=== PATIENT | female | born 1940 | race Caucasian/White ===

== ENCOUNTER 2016-07-06 21:13 | Emergency (ER) | payer MEDICARE, BC ==
[~2016-07-06] VITALS: Ht 154.9 cm; Wt 63.5 kg
[~2016-07-06 21:13] MED LIST: NORVASC5 MG ORAL
[2016-07-06] MEDS ORDERED: DIOVAN80 MG ORAL (21:28)
[2016-07-06 21:48] VITALS: BP 130/52
[2016-07-06 23:03] VITALS: BP 135/60
--- NOTE | 2016-07-06 23:53 | Emergency Room Report ---
History of Present Illness General Chief Complaint: Pain Source: Patient Present Illness HPI Patient is a 75-year-old female who presented after increased pain to the left shoulder. Patient had a report of hyperesthesia to the left superior aspect of her left shoulder. Patient had previous history of hypertension as well as arthritis. The patient denied any weakness.Patient reported having high blood pressure and had taken multiple medications attempt to lower blood pressure. Allergies: Coded Allergies: No Known Allergies (Unverified , 03/08/13) Patient History Past Medical History: see triage record Now: No Reviewed Nursing Documentation: PMH: Agreed, PSxH: Agreed Nursing Documentation-PMH Hx Hypertension: Yes Review of Systems All Other Systems: negative except mentioned in HPI Physical Exam Vital Signs Date Time Temp Pulse Resp B/P Pulse Ox O2 Delivery O2 Flow Rate FiO2 07/06/16 21:21 98.4 58 18 130/52 96 General Appearance: well appearing, no apparent distress, alert, GCS 15 Head: normocephalic, atraumatic ENT: hearing grossly normal, normal voice Neck: supple, limited range of motion Respiratory: no respiratory distress, speaking full sentences Cardiovascular #1: regular rate, rhythm Gastrointestinal: normal inspection Musculoskeletal: normal inspection, no calf tenderness, decreased range of mation Neurologic: normal inspection, alert, oriented x3, responsive, beauty specialist III-XII nml as tested, normal gait Psychiatric: mood/affect normal Skin: no rash Medical Decision Making Diagnostic Impression: Primary Impression: Arthritis Additional Impression: Muscle spasms of neck ER Course Patient presented for a neck pain.Differential diagnosis included vertebral artery dissection, myocardial infarction, cervical fracture, arthritis, spondylolithises. Because of complexity of patient's case laboratory testing and imaging studies were ordered. Patient declined laboratory testing. A chest x-ray one view interpreted by me showed degenerative changes without evident fracture cardiac size was normal. CT imaging of the cervical and thoracic spine read by radiology showed multilevel degenerative changes there also noted some coronary artery calcifications. The patient was offered admission and she declined. EKG to remain shows sinus bradycardia with a rate of [address] or T wave changes. The patient is advised followup with her global sales director for outpatient stress testing. The patient was advised she could return at anytime. Last Vital Signs Date Time Temp Pulse Resp B/P Pulse Ox O2 Delivery O2 Flow Rate FiO2 07/06/16 23:03 54 18 135/60 07/06/16 21:48 98.4 96 Status: improved Disposition: HOME, SELF-CARE Condition: Stable Patient Instructions: Muscle Cramps and Spasms, Coronary Artery Disease, Female Jf Bagley Jul 06, 2016 23:53
--- NOTE | 2016-07-07 09:08 | Diagnostic Imaging Report ---
Indication: Neck pain. Technique: Continuous helical imaging of the cervical spine was obtained transaxially from the skull base to the upper thoracic spine. 2-D coronal and sagittal reformatted images were obtained. Total Dose length Product (DLP): [address] Dose Index Volume (CTDIvol): 27 mGy Comparison: None Findings: There is no acute fracture or malalignment identified. There is no soft tissue swelling identified. Moderate uncovertebral arthritis is demonstrated at multiple levels. Many of the intervertebral discs show moderate to severe narrowing and osteophytes. Arterial vascular calcifications are noted. Impression: No acute injury Moderate spondylosis Atherosclerotic vascular disease The CT scanner at [facility] is accredited by the [employer] and the scans are performed using protocols designed to limit radiation exposure to as low as reasonably achievable to attain images of sufficient resolution adequate for diagnostic evaluation.
--- NOTE | 2016-07-07 09:16 | Diagnostic Imaging Report ---
Indication: Back pain Technique: Continuous helical transaxial imaging of the thoracic spine was obtained from the lung bases to the pubic symphysis. No IV contrast was administered. Coronal 2-D reformats were also obtained. Study obtained in a Siemens sensation [address] Total Dose length Product (DLP): [address] Dose Index Volume (CTDIvol): 27 mGy Comparison: CT chest 05/14/12 Findings: Bones are osteopenic. Multilevel degenerative changes are present including narrowing of intervertebral discs, endplate and facet spur formation. The degree of disease is moderate. There is no compelling evidence of an acute fracture. There is no malalignment concerning for acute injury. Moderate arterial vascular consultation of the aorta is noted. Coronary calcifications are also noted. No soft tissue swelling identified in the paravertebral/paraspinous regions. Impression: No acute injury identified. Osteoporosis Moderate degenerative disease as described above. Atherosclerotic vascular disease [facility] has communicated the preliminary results to the Emergency Department. Their findings are largely concordant with this report. The CT scanner at [facility] is accredited by the [employer] and the scans are performed using protocols designed to limit radiation exposure to as low as reasonably achievable to attain images of sufficient resolution adequate for diagnostic evaluation.
--- NOTE | 2016-07-07 11:48 | Diagnostic Imaging Report ---
Indication: Chest Pain Comparison: 11 x 13 A single view chest radiograph was obtained. Findings: No definite infiltrate or pulmonary vascular congestion identified. The heart is enlarged. The aorta is mildly enlarged consistent with atherosclerotic vascular disease. The bones are osteopenic. Impression: No acute disease
--- NOTE | 2016-07-11 16:38 | Cardiology Report ---
APPROVED REPORT EKG Measurement Heart [id number] Sinus bradycardia Possible Left atrial enlargement Low voltage QRS Borderline ECG
== END 2016-07-06 23:00 | disposition home or self-care (01) ==
LOC: EMR 21:20
DX: M19.90 Unspecified osteoarthritis, unspecified site (principal); M62.838 Other muscle spasm; I25.10 Atherosclerotic heart disease of native coronary artery without angina pectoris; I10 Essential (primary) hypertension
CPT/HCPCS: 71010; 72125; 72128; 93005; 99284

== ENCOUNTER → 2016-08-06 | Outpatient (CLI) | payer MEDICARE, BC ==
[~2016-08-06] MED LIST changes: +DIOVAN80 MG ORAL
--- NOTE | 2016-08-06 12:44 | Diagnostic Imaging Report ---
Indication: Persistent headache Technique: sagittal T1 fast spin echo, axial T1 FLAIR PROPELLER, axial T2 FLAIR PROPELLER, axial T2 FS PROPELLER, axial T2* GRE, axial diffusion weighted images. ADC and exponential ADC maps generated Comparison: CT brain 03/08/2013, MRI brain 10/22/2011 Findings: . No abnormal areas of restricted diffusion to suggest acute infarction. No acute hemorrhage or edema. No mass effect nor midline shift. There is again demonstrated age-related enlargement of the ventricles and extra-axial CSF spaces periventricular deep white matter chronic ischemic changes are again demonstrated, appears similar to the prior study. Nonspecific bilateral deep white matter T2 hyperintensities are again demonstrated, and appear similar in extent to the prior study. Again demonstrated is right mastoid disease. The vascular flow voids are preserved.. Visualized orbits and sinuses are unremarkable. Impression: Chronic and age-related changes, as described, stable since 10/22/2011 Negative for acute intracranial bleed, mass effect, or infarct
== END | disposition home or self-care (01) ==
LOC: MRI 09:52
DX: R51 Headache (principal)
CPT/HCPCS: 70551

== ENCOUNTER 2018-02-02 12:12 | Emergency (ER) | payer MEDICARE, BC ==
[~2018-02-02] VITALS: Ht 157.5 cm; Wt 62.1 kg
[2018-02-02 12:38] VITALS: BP 155/67
[2018-02-02 12:40] LABS: EOSINOPHILS % (AUTO) 1.7 % (0.0-3.0); HEMOGLOBIN 13.2 G/DL (12.0-16.0); LYMPHOCYTES % (AUTO) 23.9 % (20.0-45.0); MEAN CORPUSCULAR VOLUME 92 FL (80-99); MONOCYTES % (AUTO) 9.5 % (1.0-10.0); NEUTROPHILS % (AUTO) 63.9 % (45.0-75.0); PLATELET COUNT 226 K/UL (150-450); RED BLOOD COUNT 4.37 M/UL (4.20-5.40); RED CELL DISTRIBUTION WIDTH 11.8 % (11.6-14.8); WHITE BLOOD COUNT 7.3 K/UL (4.8-10.8)
[2018-02-02 12:52] LABS: ANION GAP 6 mmol/L (5-15); BLOOD UREA NITROGEN 15 mg/dL (7-18); CALCIUM 8.8 MG/DL (8.5-10.1); CARBON DIOXIDE 28 MMOL/L (21-32); CHLORIDE 105 MMOL/L (98-107); CREATININE 0.7 MG/DL (0.55-1.30); POTASSIUM 5.3 MMOL/L (3.5-5.1); SODIUM 139 MMOL/L (136-145)
[2018-02-02 12:58] LABS: ALANINE AMINOTRANSFERASE 17 U/L (12-78); ALBUMIN 3.2 G/DL (3.4-5.0); ALBUMIN/GLOBULIN RATIO 0.9 (1.0-2.7); ALKALINE PHOSPHATASE 74 U/L (46-116); ASPARTATE AMINO TRANSFERASE 21 U/L (15-37); BILIRUBIN,TOTAL 0.4 MG/DL (0.2-1.0)
--- NOTE | 2018-02-02 13:40 | Emergency Room Report ---
History of Present Illness General Chief Complaint: Multiple Trauma/Fall Source: Patient Present Illness HPI Patient states that she lost her balance and had a mechanical fall while seeing patients today in her office. 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 She states she fell onto her left side. She does report that she had the back of her head. She has a history of hypertension. She is on a baby aspirin daily. She is otherwise on no blood thinners. She complains of left hip pain, left knee pain and left shoulder pain. She has no other complaints. She did not have any prodromal symptoms such as chest pain, palpitations or lightheadedness. She denies recent illness. Allergies: Coded Allergies: No Known Allergies (Unverified , 03/08/13) Patient History Past Medical History: see triage record, HTN Past Surgical History: other - L. ankle reconstruction Social History: Denies: smoking, alcohol use, drug use Now: No Reviewed Nursing Documentation: PMH: Agreed; PSxH: Agreed Nursing Documentation-PMH Hx Hypertension: Yes Review of Systems All Other Systems: negative except mentioned in HPI Physical Exam Vital Signs Date Time Temp Pulse Resp B/P (MAP) Pulse Ox O2 Delivery O2 Flow Rate FiO2 02/02/18 12:09 97.6 67 18 155/67 98 Room Air 97.5 Sp02 EP Interpretation: reviewed, normal General Appearance: no apparent distress, alert, GCS 15, non-toxic Head: normocephalic, atraumatic Eyes: bilateral eye normal inspection, bilateral eye PERRL ENT: hearing grossly normal, normal pharynx, no angioedema, normal voice Neck: full range of motion, supple/symm/no masses Respiratory: chest non-tender, lungs clear, normal breath sounds, no respiratory distress, no retraction, no accessory muscle use, speaking full sentences Cardiovascular #1: regular rate, rhythm, no edema Gastrointestinal: normal bowel sounds, non tender, soft, non-distended, no guarding, no rebound Rectal: deferred Musculoskeletal: normal inspection, other - Pain w/ ROM of L. hip, L. knee and L. shoulder. Neurologic: alert, oriented x3, responsive, motor strength/tone normal, sensory intact, speech normal Psychiatric: judgement/insight normal, memory normal, mood/affect normal, no suicidal/homicidal ideation Skin: normal color, no rash, warm/dry, well hydrated Medical Decision Making Diagnostic Impression: Primary Impression: Contusion, multiple sites ER Course This patient status post mechanical fall. She has pain in her left hip and left side of her body but there is no evidence of any acute fractures or significant injuries. The patient declined pain medicine here in the emergency department. Overall, the patient's evaluation was benign. At this time, I did not identify an emergency medical condition. The patient is given close return precautions and follow-up instructions. Laboratory Tests Test 02/02/18 12:28 02/02/18 12:30 White Blood Count 7.3 K/UL (4.8-10.8) Red Blood Count 4.37 M/UL (4.20-5.40) Hemoglobin 13.2 G/DL (12.0-16.0) Hematocrit 40.0 % (37.0-47.0) Mean Corpuscular Volume 92 FL (80-99) Mean Corpuscular Hemoglobin 30.2 PG (27.0-31.0) Mean Corpuscular Hemoglobin Concent 33.0 G/DL (32.0-36.0) Red Cell Distribution Width 11.8 % (11.6-14.8) Platelet Count 226 K/UL (150-450) Mean Platelet Volume 7.5 FL (6.5-10.1) Neutrophils (%) (Auto) 63.9 % (45.0-75.0) Lymphocytes (%) (Auto) 23.9 % (20.0-45.0) Monocytes (%) (Auto) 9.5 % (1.0-10.0) Eosinophils (%) (Auto) 1.7 % (0.0-3.0) Basophils (%) (Auto) 1.0 % (0.0-2.0) Prothrombin Time 10.2 SEC (9.30-11.50) Prothrombin Time INR 1.0 (0.9-1.1) PTT 28 SEC (23-33) Sodium Level 139 MMOL/L (136-145) Potassium Level 5.3 MMOL/L (3.5-5.1) H Chloride Level 105 MMOL/L (98-107) Carbon Dioxide Level 28 MMOL/L (21-32) Anion Gap 6 mmol/L (5-15) Blood Urea Nitrogen 15 mg/dL (7-18) Creatinine 0.7 MG/DL (0.55-1.30) Estimate Glomerular Filtration Rate mL/min (>60) Glucose Level 101 MG/DL (74-106) Calcium Level 8.8 MG/DL (8.5-10.1) Total Bilirubin 0.4 MG/DL (0.2-1.0) Aspartate Amino Transferase (AST) 21 U/L (15-37) Alanine Aminotransferase (ALT) 17 U/L (12-78) Alkaline Phosphatase 74 U/L (46-116) Total Protein 6.7 G/DL (6.4-8.2) Albumin 3.2 G/DL (3.4-5.0) L Globulin 3.5 g/dL Albumin/Globulin Ratio 0.9 (1.0-2.7) L Other X-Ray Diagnostic Results Other X-Ray Diagnostic Results : X-Ray ordered: L. hip, L.knee, L. shoulder xrays # of Views/Limited Vs Complete: Complete Indication: Pain EP Interpretation: No Interpretation: no fractures Impression: Other - No fractures. See official report. Electronically Signed by: Amy CT/MRI/US Diagnostic Results CT/MRI/US Diagnostic Results : Imaging Test Ordered: CT pelvis, CT head Impression No acute findings on either study. See official report in electronic medical record. Last Vital Signs Date Time Temp Pulse Resp B/P (MAP) Pulse Ox O2 Delivery O2 Flow Rate FiO2 02/02/18 12:38 97.6 67 18 155/67 98 97.6 02/02/18 12:09 Room Air Disposition: HOME, SELF-CARE Condition: Improved Referrals: NOT CHOSEN IPA/,REFERRING (PCP) Geri Borjas DO Feb 02, 2018 13:40
--- NOTE | 2018-02-02 13:53 | Diagnostic Imaging Report ---
Indication: Ground-level fall, 4 out of 10 nonradiating left hip pain Technique: Noncontrast spiral acquisitions obtained through the pelvis. Multiplanar reconstructions generated. Total dose length product 612.95 mGycm. CTDIvol(s) 19.32 mGy. Dose reduction achieved using automated exposure control Comparison: Reference made to chest abdomen pelvis CT dated 05/14/2012 Findings: No acute fractures. No dislocations. No evidence of significant soft tissue contusion or hematoma. Joint spaces are preserved.. There are degenerative changes of the lumbosacral junction. The uterus is absent, presumably postsurgically. The visualized pelvic viscera are unremarkable. There are atherosclerotic vascular calcifications. There is widening of the sacral spinal canal to the right of midline with fluid attenuation material, thinning of the overlying cortex. 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 Queen in the emergency room The CT scanner at [facility] is accredited by the [employer] and the scans are performed using protocols designed to limit radiation exposure to as low as reasonably achievable to attain images of sufficient resolution adequate for diagnostic evaluation.
--- NOTE | 2018-02-02 13:57 | Diagnostic Imaging Report ---
Indications: Trauma Technique: Spiral acquisitions obtained through the brain. Angled axial and coronal 5 x 5 mm slices were reconstructed. Total dose length product 1445.84 mGycm. CTDI vol(s) 70.38 mGy. Dose reduction achieved using automated exposure control Comparison: 03/08/2013 Findings: Ventricles, cisterns, sulci are prominent but stable. No acute intracranial hemorrhage nor edema. No mass effect nor midline shift. Normal garcia-white differentiation. No significant extracranial soft tissue abnormality. The sinuses are clear. There is minimal mastoid disease on the right. The calvarium is intact. There is evidence of prior bilateral cataract surgery. Orbits are otherwise unremarkable. No significant interim change Impression: Age-related changes. Negative for acute intracranial bleed or mass effect. The CT scanner at [facility] is accredited by the [employer] and the scans are performed using protocols designed to limit radiation exposure to as low as reasonably achievable to attain images of sufficient resolution adequate for diagnostic evaluation.
--- NOTE | 2018-02-02 14:05 | Diagnostic Imaging Report ---
Indication: Trauma, pain, status post fall Technique: 3 views of the left shoulder Comparison: none Findings: The bones are osteoporotic. There is questionable mild mild upwards subluxation of the left humeral head, likely artifact of positioning but could indicate chronic rotator cuff injury. There is evidence of calcific tendinosis of the rotator cuff. No acute fractures. No dislocations. There is mild narrowing of the glenohumeral joint, consistent with mild degenerative change. Impression: No acute bony trauma Degenerative changes as described Calcific tendinosis of the rotator cuff Osteoporotic change Equivocal slight upward subluxation of the humeral head, could indicate chronic rotator cuff injury. Correlate with clinical history
[2018-02-02 14:19] VITALS: BP 145/68
--- NOTE | 2018-02-02 14:35 | Diagnostic Imaging Report ---
Indication: Trauma, pain, status post fall Technique: 3 views of the left knee Comparison: None Findings: The joint spaces are preserved. No acute fractures. No dislocations. No evidence of suprapatellar effusion. Numerous phleboliths are seen in the soft tissues of the proximal leg. There are minimal vascular calcifications. Impression: No acute bony trauma
--- NOTE | 2018-02-02 14:37 | Diagnostic Imaging Report ---
Indication: Trauma Technique: 2 views of the left hip Comparison: none Findings: No acute fractures. No dislocations. The joint spaces are preserved Impression: Negative
== END 2018-02-02 14:19 | disposition home or self-care (01) ==
LOC: EDSEX 12:12 → EDBD 12:12 → EMR 12:30
DX: S70.02XA Contusion of left hip, initial encounter (principal); S80.02XA Contusion of left knee, initial encounter; S40.012A Contusion of left shoulder, initial encounter; W19.XXXA Unspecified fall, initial encounter; Y93.F9 Activity, other caregiving; Y92.531 Health care provider office as the place of occurrence of the external cause; I10 Essential (primary) hypertension; Z79.82 Long term (current) use of aspirin
CPT/HCPCS: 36415; 70450; 72192; 73502; 80053; 85025; 85610; 85730; 99284